=== PATIENT | female | born 1955 | race African-American/Black ===

== ENCOUNTER 2016-09-29 19:41 | Inpatient (IN) | payer MEDICAID, OTHER ==
[~2016-09-29] VITALS: Ht 170.2 cm; Wt 92.1 kg
[2016-09-29 20:00] VITALS: BP 140/75
[2016-09-29 20:40] LABS: MEAN CORPUSCULAR HEMOGLOBIN 15.1 PG (27.0-31.0); MEAN CORPUSCULAR HGB CONC 26.7 G/DL (32.0-36.0); MEAN CORPUSCULAR VOLUME 57 FL (80-99); MEAN PLATELET VOLUME 6.9 FL (6.5-10.1); PLATELET COUNT 467 K/UL (150-450); RED CELL DISTRIBUTION WIDTH 16.1 % (11.6-14.8)
[2016-09-29 20:54] LABS: ALANINE AMINOTRANSFERASE 17 U/L (3-33); ANION GAP 13 (5-15); ASPARTATE AMINO TRANSFERASE 24 U/L (5-40); CALCIUM 8.8 mg/dL (8.6-10.2); CARBON DIOXIDE 26 mEQ/L (20-30); CHLORIDE 99 mEQ/L (98-107); CREATININE 1.1 mg/dL (0.5-0.9); GLOMERULAR FILTRATION RATE > 60 mL/min (>60); HEMOLYSIS 34; POTASSIUM 3.6 mEQ/L (3.4-4.9); SODIUM 138 mEQ/L (135-145); TOTAL PROTEIN 6.9 g/dL (6.6-8.7); TROPONIN I < 0.30 ng/mL (<=0.30)
[2016-09-29 21:28] LABS: EOSINOPHILS % (MANUAL) 6 % (0-3); LYMPHOCYTES % (MANUAL) 22 % (20-45); NEUTROPHILS % (MANUAL) 68 % (45-75); TOTAL CELLS COUNTED 100
[2016-09-29 21:29] LABS: HYPOCHROMASIA 3+; MICROCYTES 3+
[2016-09-29 21:30] LABS: ANISOCYTOSIS 3+
[2016-09-29 21:31] LABS: BAND NEUTROPHILS % (MANUAL) 0 % (0-8); BASOPHILS % (MANUAL) 0 % (0-2); PLATELET ESTIMATE INCREASED; PLATELET MORPHOLOGY NORMAL; POLYCHROMASIA 1+; TARGET CELLS 1+
--- NOTE | 2016-09-29 21:49 | Emergency Room Report ---
History of Present Illness General Chief Complaint: Dyspnea/Respdistress Source: Patient Present Illness HPI 61 YO F presents with 3 days progressive SOB, dry cough, dizziness, weakness. SOB worse with lying down. Denies fever/chills, chest pain. Has history of CHF - stopped taking Lasix months ago because of "bad side effects." Never been on BIPAP or intubated for CHF. Doesnt take any other medications. Allergies: Coded Allergies: PENICILLINS (Unverified Allergy, Unknown, 09/29/16) LISINOPRIL (Verified Adverse Reaction, Intermediate, 03/12/15) LOSARTAN (Unverified Adverse Reaction, Intermediate, 03/12/15) METOPROLOL (Verified Adverse Reaction, Intermediate, 03/12/15) Patient History Past Medical History: other - CHF Past Surgical History: none Pertinent Family History: none Social History: Denies: alcohol use, drug use, smoking Now: No Immunizations: UTD Reviewed Nursing Documentation: PMH: Agreed, PSxH: Agreed Nursing Documentation-PMH Past Medical History: No History, Except For Hx Cardiac Problems: Yes Hx Hypertension: Yes Hx Asthma: Yes - 20 yrs ago Review of Systems All Other Systems: negative except mentioned in HPI Physical Exam Vital Signs Date Time Temp Pulse Resp B/P Pulse Ox O2 Delivery O2 Flow Rate FiO2 09/29/16 19:50 98.4 117 22 125/69 96 Room Air 09/29/16 21:24 40 Sp02 EP Interpretation: reviewed, normal General Appearance: normal inspection, well appearing, alert, GCS 15, non-toxic , mild distress Head: normocephalic, atraumatic Eyes: bilateral eye EOMI, bilateral eye PERRL ENT: normal ENT inspection, hearing grossly normal, normal voice Neck: normal inspection, full range of motion, supple, no bony tend Respiratory: normal inspection, normal breath sounds, no retraction, no wheezing, accessory muscle use, crackles, rales Cardiovascular #1: regular rate, rhythm, no edema, edema Gastrointestinal: normal inspection, normal bowel sounds, non tender, soft, no guarding, no hernia Genitourinary: no CVA tenderness Musculoskeletal: normal inspection, back normal, normal range of motion, Alonzo' s Sign negative Neurologic: normal inspection, alert, oriented x3, responsive, coiled coil inspector III-XII nml as tested, motor strength/tone normal, speech normal Psychiatric: normal inspection, judgement/insight normal, mood/affect normal Skin: normal inspection, normal color, no rash Medical Decision Making Diagnostic Impression: Primary Impression: Dyspnea Qualified Codes: R06.00 - Dyspnea, unspecified Additional Impressions: CHF (congestive heart failure) Qualified Codes: I50.9 - Heart failure, unspecified MEÑO (acute kidney injury) Anemia Qualified Codes: D64.9 - Anemia, unspecified ER Course Acute, progressive SOB. VS notable for tachycardia. Normotensive. Afebrile DDx includes PNA, acute on chronic CHF, PTX, URI/bronchitis PLAN Bipap, lasix, SL nitro as BP tolerates Admit EKG Diagnostic Results Rate: tachycardiac Rhythm: NSR ST Segments: no acute changes ASA given to the pt in ED: No Rhythm Strip Diag. Results EP Interpretation: yes Rate: 105 Rhythm: NSR, no PVC's, no ectopy Chest X-Ray Diagnostic Results EP Interpretation: Yes Findings: no consolidation, no pneumothorax, other - bilateral pulm congestion , cardiomegaly Reevaluation Time: 21:45 Last Vital Signs Date Time Temp Pulse Resp B/P Pulse Ox O2 Delivery O2 Flow Rate FiO2 09/29/16 21:24 40 09/29/16 20:00 98.0 111 24 140/75 96 Room Air Status: improved Reevaluation Impression Labs: No leuks. Hb 6.5. Cret 1.1 Troponin 0. CXR on ED review shows bilateraly pulm congestion. No obvious PNA EKG is sinus tach. No ischemia A: Acute on chronic CHF. Patient refusing Bipap. Only wants nitro, lasix Understands risk of refusing BIPAP could result in worsening respiratory status including acute respiratory failure, arrest. I spent considerable time explaining this to patient and she verbalizes understanding. Patient also with acute anemia which could be contributing to her SOB, dizziness. Denies heavy vaginal bleed, lower GI Bleed, upper GI bleed Will transfuse 2Units Endorsed to Dr Watson Disposition: ADMITTED INPATIENT Condition: Critical Scripts Ferrous Gluconate (FERROUS GLUCONATE) 324 Mg Tablet 324 MG PO BID, #60 TAB Prov: MARIA WATSON 10/01/16 Potassium Chloride* (K-DUR*) 20 Meq Tab.er.prt 20 MEQ ORAL TWICE A DAY, #60 TAB Prov: MARIA WATSON 1/1/17 Pantoprazole* (PROTONIX*) 40 Mg Tablet.dr 40 MG ORAL EVERY 12 HOURS, #30 TAB Prov: MARIA WATSON 10/01/16 Losartan Potassium* (COZAAR*) 50 Mg Tablet 50 MG ORAL EVERY 12 HOURS, #60 TAB Prov: MARIA WATSON 10/01/16 Furosemide* (LASIX*) 40 Mg Tablet 40 MG ORAL EVERY 12 HOURS, #30 TAB Prov: MARIA WATSON 10/01/16 Carvedilol (Coreg) 12.5 Mg Tablet 12.5 MG ORAL EVERY 12 HOURS, #60 TAB Prov: MARIA WATSON 10/01/16 Referrals: NON PHYSICIAN (PCP) MILLI DUKES M.D. Sep 29, 2016 21:49
[2016-09-29 22:33] LABS: CKMB 2.2 ng/mL (< 3.8)
[2016-09-29 23:04] LABS: INR 1.1 (0.9-1.1); PROTHROMBIN TIME 10.7 SEC (9.30-11.50)
[2016-09-29 23:32] VITALS: BP 123/69
[2016-09-30 01:06] VITALS: BP 123/65
[2016-09-30 02:51] VITALS: BP 110/58
[2016-09-30 04:50] VITALS: BP 108/60
[2016-09-30] MEDS ORDERED: GUAIFENESIN-CO118 M1 ORAL (07:10)
[2016-09-30 08:30] VITALS: BP 125/68
--- NOTE | 2016-09-30 10:15 | Diagnostic Imaging Report ---
Indication: Chest pain Technique: One view of the chest Comparison: 03/12/2015 Findings: There is mild interstitial congestion. This is somewhat less severe than seen on the prior study. The heart is enlarged. Impression: Cardiomegaly Mild interstitial congestion This agrees with the preliminary interpretation provided by the emergency room physician.
[2016-09-30] MEDS: Bisacodyl EC 5mg tab ORAL SCH (10:17)
[2016-09-30] MEDS: Albuterol ud Inhalation HHN SCH ×4 (11:08→23:26)
[2016-09-30] MEDS: Losartan 50mg tab ORAL SCH ×2 (11:29→21:09)
[2016-09-30] MEDS: Carvedilol 12.5mg tab ORAL SCH ×2 (11:30→21:00)
[2016-09-30] MEDS: Furosemide 40mg tab ORAL SCH ×2 (11:30→21:10)
[2016-09-30 11:47] VITALS: BP 139/85
[2016-09-30 12:51] LABS: TROPONIN I < 0.30 ng/mL (<=0.30)
[2016-09-30 12:53] LABS: ALANINE AMINOTRANSFERASE 15 U/L (3-33); ANION GAP 12 (5-15); ASPARTATE AMINO TRANSFERASE 16 U/L (5-40); CALCIUM 8.7 mg/dL (8.6-10.2); CARBON DIOXIDE 27 mEQ/L (20-30); CHLORIDE 101 mEQ/L (98-107); CREATININE 0.9 mg/dL (0.5-0.9); GLOMERULAR FILTRATION RATE > 60 mL/min (>60); PHOSPHORUS 3.5 mg/dL (2.5-4.8); POTASSIUM 3.7 mEQ/L (3.4-4.9); SODIUM 140 mEQ/L (135-145); TOTAL PROTEIN 6.8 g/dL (6.6-8.7)
[2016-09-30 12:54] LABS: HEMOLYSIS 1; IRON 14 ug/dL (37-145); TOTAL IRON BINDING CAPACITY 302 ug/dL (250-400)
[2016-09-30 13:03] LABS: MEAN CORPUSCULAR HEMOGLOBIN 16.1 PG (27.0-31.0); MEAN CORPUSCULAR HGB CONC 28.3 G/DL (32.0-36.0); MEAN CORPUSCULAR VOLUME 57 FL (80-99); PLATELET COUNT 466 K/UL (150-450); RED BLOOD COUNT 4.16 M/UL (4.20-5.40); RED CELL DISTRIBUTION WIDTH 16.4 % (11.6-14.8); WHITE BLOOD COUNT 7.5 K/UL (4.8-10.8)
[2016-09-30 13:06] LABS: THYROID STIMULATING HORMONE 0.903 uIU/mL (0.300-4.500)
[2016-09-30 13:20] LABS: APPEARANCE,URINE CLEAR; KETONES,URINE NEGATIVE (NEGATIVE); LEUKOCYTE ESTERASE ,URINE 1+ (NEGATIVE); NITRITE,URINE NEGATIVE (NEGATIVE); PH,URINE 6 (4.5-8.0); PROTEIN,URINE NEGATIVE (NEGATIVE); UROBILINOGEN,URINE NORMAL MG/DL (0.0-1.0)
[2016-09-30 13:31] LABS: RBC,URINE 0-2 /HPF (0 - 2)
[2016-09-30 13:32] LABS: BACTERIA,URINE OCCASIONAL /HPF; SQUAMOUS EPITHELIAL CELL,UR FEW /LPF (NONE/OCC)
[2016-09-30 13:53] LABS: ANISOCYTOSIS 1+; BAND NEUTROPHILS % (MANUAL) 0 % (0-8); BASOPHILS % (MANUAL) 0 % (0-2); EOSINOPHILS % (MANUAL) 1 % (0-3); HYPOCHROMASIA 4+; LYMPHOCYTES % (MANUAL) 11 % (20-45); NEUTROPHILS % (MANUAL) 81 % (45-75); PLATELET ESTIMATE ADEQUATE; TOTAL CELLS COUNTED 100
[2016-09-30 13:54] LABS: MICROCYTES 3+; PLATELET MORPHOLOGY NORMAL
--- NOTE | 2016-09-30 18:38 | History and Physical Report ---
DATE OF ADMISSION: 09/29/2016 CHIEF COMPLAINT AND REASON FOR HOSPITALIZATION: The patient admitted with cough and shortness of breath. HISTORY OF PRESENT ILLNESS: The patient is a 61-year-old female, who has a history of prior treatment for hypertension and possible CHF with leg edema. She states she had a possible MA two years ago in [place]. She had intermittent leg edema and recently a cold, cough and some shortness of breath and wheezing. For this reason, she came to the emergency room and treatment was started for congestive heart failure. The patient apparently stopped all her medications in March of this year because she is having nonspecific malaise and thought that she was having side effects. Infectious Disease, she had a positive PPD while unemployed and apparently was given a year of isoniazid or similar medication. MEDICATIONS: No current medications. Prior to admission medicines, which she quit in March where Coreg 25 mg b.i.d., Lasix 40 mg daily and Aldactone 25 mg twice a day. ALLERGIES: None known. HABITS: She was a smoker about a half to one pack a day until 2004, which she quit. No alcohol or drugs. SOCIAL HISTORY: She worked in a hospital in the past, apparently as nurse's . She is single, has two children. FAMILY HISTORY: Positive for mental illness in her mother. REVIEW OF SYSTEMS: HEENT: Vision and hearing are good. Endocrine: History of obesity. No known diabetes or thyroid disease. Pulmonary: History of coughing and wheezing as above. Cardiac: See history of present illness. Gastrointestinal: No ulcers or GI bleeding. No abdominal pain. She did have a colonoscopy about two years ago and polyps were removed. This was done for anemia. She is not aware of any hematochezia or melena. Genitourinary: No dysuria, hematuria, or kidney stones. Neurologic: No CVA, syncope or seizures. PHYSICAL EXAMINATION: GENERAL: The patient is alert obese lady, in no acute distress. VITAL SIGNS: Temperature 97 degrees, pulse 105, respirations 18, blood pressure 125/68, and pulse oximetry 95% on room air. HEENT: Sclerae nonicteric. Ocular motions intact in all directions. Oral mucosa moist. NECK: No adenopathy. LUNGS: Few faint wheezes. No distress. BREASTS: No masses. ABDOMEN: Soft without organomegaly or masses. EXTREMITIES: No edema, cyanosis, or clubbing. NEUROLOGIC: She is alert and oriented. Cranial nerves are intact. LABORATORY AND DIAGNOSTIC DATA: Pertinent electrolytes normal. Troponin normal. BNP 1674. Albumin 3.6. Hemoglobin is 6.5 and hematocrit 24.4 with microcytic indices. Chest x-ray, read by the emergency room doctor showed a cardiomegaly and possible CHF. IMPRESSION: 1. Shortness of breath, likely a combination of asthma and congestive heart failure. 2. Severe anemia, likely iron deficiency, likely due to chronic gastrointestinal bleeding. 3. Incomplete database. PLAN: The patient will be initiated treatment for congestive heart failure and anemia. We will get further database including echo and further imaging and make assessments based on response to the above measures. At this time, she is declining transfusion. Manuel Navarrete M.D. DR: SERENA JOB#: [id number] CC:
[2016-09-30 20:00] VITALS: BP 108/65
[2016-10-01 00:16] VITALS: BP 105/64
[2016-10-01] MEDS: Albuterol ud Inhalation HHN SCH ×3 (03:00→08:44)
[2016-10-01 04:00] VITALS: BP 109/53
[2016-10-01 08:18] VITALS: BP 106/66
[2016-10-01] MEDS: Losartan 50mg tab ORAL SCH (08:43)
[2016-10-01] MEDS: Furosemide 40mg tab ORAL SCH (08:44)
[2016-10-01] MEDS: Carvedilol 12.5mg tab ORAL SCH (08:44)
[2016-10-01] MEDS: Bisacodyl EC 5mg tab ORAL SCH (08:45)
[2016-10-01] MEDS ORDERED: COZAAR50 MG ORAL (09:26)
[2016-10-01] MEDS ORDERED: POTASSIUM CHLO20 ME1 ORAL (09:26)
[2016-10-01] MEDS ORDERED: FERROUS GLUCON324 M1 PO (09:26)
[2016-10-01] MEDS ORDERED: FUROSEMIDE40 MG ORAL (09:26)
[2016-10-01] MEDS ORDERED: COREG12.5 MG ORAL (09:26)
[2016-10-01] MEDS ORDERED: PROTONIX40 MG ORAL (09:26)
[2016-10-01 12:20] VITALS: BP 91/56
[2016-10-01] MEDS ORDERED: NS 275ml ONE (12:59)
[2016-10-01] MEDS ORDERED: Tubing IV Secondary IV ONE (12:59)
--- NOTE | 2016-10-02 09:58 | Discharge Summary ---
DATE OF ADMISSION: 09/29/2016 DATE OF DISCHARGE: 10/01/2016 PERTINENT HISTORY: The patient presents with shortness of breath, cough, and anemia. PERTINENT PHYSICAL FINDINGS: LUNGS: Few faint wheeze. HEART: Regular rhythm. EXTREMITIES: Trace edema. COURSE IN THE HOSPITAL: The patient had borderline pulmonary vascular redistribution and Cardiomegaly and was treated for congestive heart failure. She also was given albuterol for bronchospasm and asthma. She had a hemoglobin of 6.5, microcytic likely due to chronic gastritis and GI bleeding. She refused transfusion. She was given intravenous iron and PPI. There is no nausea, vomiting, and abdominal pain. On the day of discharge, she felt well. Lungs showed few faint wheeze. No distress. Heart, regular rhythm. Abdomen is soft. Extremities, no edema. She is alert and ambulatory, felt well, and was discharged home in stable condition. FINAL DIAGNOSES: 1. Congestive heart failure, acute on chronic with diastolic dysfunction. 2. Hypertensive heart disease. 3. Iron-deficiency anemia, severe. 4. Gastritis. 5. Asthma. DISCHARGE DISPOSITION: Discharged home on a low-salt diet. DISCHARGE MEDICATIONS: Per the discharge medication list. DISCHARGE INSTRUCTIONS: She is instructed to follow up with either Dr. Navarrete or the physician of her choice within a week. Manuel Navarrete M.D. DR: Crispin JOB#: [id number] CC:
--- NOTE | 2016-10-03 11:02 | Cardiology Report ---
APPROVED REPORT EKG Measurement Heart [id number] Normal sinus rhythm Possible Left atrial enlargement Junctional ST depression, probably normal Borderline ECG
--- NOTE | 2016-10-03 11:30 | Cardiology Report ---
APPROVED REPORT EXAM: Two-dimensional and M-mode echocardiogram with Doppler and color Doppler. INDICATION Congestive Heart Failure M-Mode DIMENSIONS IVSd1.3 (0.7-1.1cm)Left Atrium (MM)4.2 (1.6-4.0cm) LVDd5.7 (3.5-5.6cm)Aortic Root2.5 (2.0-3.7cm) PWd1.3 (0.7-1.1cm)Aortic Cusp Exc.1.5 (1.5-2.0cm) LVDs4.9 (2.5-4.0cm) PWs1.4 cm Mild left ventricularenlargement. MILD LEFT VENTRICULAR systolic DYSfunction WITH MILD GLOBAL HYPOKINESIS. Left ventricular ejection fraction estimated to be 45-50%. No evidence of left ventricular hypertrophy. No evidence of pericardial fat or effusion. Large left atrial and mild right enlargement by 2D. Moderate right ventricular enlargement by 2D. Focal aortic valve sclerosis with adequate cusp excursion Moderatly thickened mitral valve leaflets with normal excursion. Moderate mitral annulus and aortic root calcification. Pulmonic valve is well visualized. Normal tricuspid valve structure. IVC is normal in size with physiologic collapse. A color flow and spectral Doppler study was performed and revealed: No aortic regurgitation. Moderate mitral regurgitation. Normal left ventricular diastolic dysfunction. Mild tricuspid regurgitation. Tricuspid systolic velocities suggests peak right ventricular systolic pressure of 37 mmHg Consistent with mild pulmonary hypertension. Pulmonic regurgitation present.
--- NOTE | 2016-10-04 08:37 | Cardiology Report ---
APPROVED REPORT EKG Measurement Heart [id number] Sinus tachycardia Possible Left atrial enlargement Nonspecific ST abnormality Abnormal ECG
== END 2016-10-01 13:00 | disposition home or self-care (01) | DRG 194 ==
LOC: EMR 20:14 → 2E 22:02 → EDBEDREQ 09-30 05:43
DX: I11.0 Hypertensive heart disease with heart failure (principal); K92.2 Gastrointestinal hemorrhage, unspecified; D50.0 Iron deficiency anemia secondary to blood loss (chronic); I50.33 Acute on chronic diastolic (congestive) heart failure; K29.70 Gastritis, unspecified, without bleeding; J45.909 Unspecified asthma, uncomplicated; Z87.891 Personal history of nicotine dependence; Z53.29 Procedure and treatment not carried out because of patient's decision for other reasons
CPT/HCPCS: 36415; 71010; 80053; 81001; 82550; 82553; 82607; 82728; 83540; 83550; 83735; 83880; 84100; 84439; 84443; 84480; 84484; 85007; 85025; 85610; 85730; 86710; 86850; 86900; 86901; 86920; 93005; 93306; 94640; 94664; J8499